=== PATIENT | female | born 1975 | race Caucasian/White ===

== ENCOUNTER 2023-12-08 07:10 | Outpatient (CLI) | payer OTHER, SELFPAY ==
--- NOTE | ~2023-12-08 | US_ITS ---
Pelvic ultrasound. Clinical History: Pelvic pain Technique: Realtime transabdominal and transvaginal scanning of the pelvis was performed. Color flow Doppler and Doppler spectral analysis were performed. Findings: The uterus is anteverted. The endometrial stripe has a thickness of 5 mm. In satisfactory position. Suspected ill-defined fundal fibroid measuring 2.1 m in diameter. The right ovary measures 2.2 x 1.7 x 1.8 cm. No significant right ovarian or adnexal mass is seen. The left ovary measures 3.1 x 2.2 x 3.9 cm. There is a 2.4 cm probable mildly complex/septated cyst. There is no evidence of free fluid in the cul de sac. Impression: IUD in satisfactory position. 2.4 cm probable mildly complex left ovarian cyst. Reviewed, dictated and finalized at [facility]. Impression: IUD in satisfactory position. 2.4 cm probable mildly complex left ovarian cyst.
== END 2023-12-08 07:11 ==
PROVIDERS: PCP Family Medicine; Visit Provider Obstetrics & Gynecology
DX: R10.2 Pelvic and perineal pain (principal); N83.202 Unspecified ovarian cyst, left side; Z97.5 Presence of (intrauterine) contraceptive device
CPT/HCPCS: 76830; 76856